=== PATIENT | male | born 1970 | race Caucasian/White ===

== ENCOUNTER 2017-03-31 05:09 | Emergency (ER) | payer BC ==
[2017-03-31] MEDS ORDERED: Ondansetron INJ* 2 MG/ML VIAL IV ONE (05:23)
[2017-03-31] MEDS ORDERED: NS 0.9% 1000 ML* 1,000 ML IV ONE (05:23)
[2017-03-31 06:17] LABS: Hematocrit 44 % (42-52); Hemoglobin 15.5 g/dl (14.0-18.0); Mean Corpuscular HGB Conc 35 g/dl (31-36); Mean Corpuscular Hemoglobin 34 pg (27-31); Mean Corpuscular Volume 96 fL (80-94); Mean Platelet Volume 11 um3 (7.4-10.4); Red Blood Count 4.58 10^6/ul (4.0-5.4); Red Cell Distribution Width 12 % (10.5-15); White Blood Count 8.4 10^3/ul (3.5-10.8)
[2017-03-31 06:19] LABS: Urine Bilirubin Negative (Negative); Urine Glucose Negative (Negative); Urine Nitrite Negative (Negative)
[2017-03-31 06:32] LABS: ALT 100 U/L (7-52); AST 35 U/L (13-39); Albumin 4.6 g/dL (3.2-5.2); Alkaline Phosphatase 67 U/L (34-104); Anion Gap 8 mmol/L (2-11); BUN/Creatinine Ratio 16.1 (8-20); Blood Urea Nitrogen 15 mg/dL (6-24); C Reactive Protein < 1.00 mg/L (< 5.00); CO2 Carbon Dioxide 27 mmol/L (22-32); Calcium 9.9 mg/dL (8.6-10.3); Chloride 103 mmol/L (101-111); EGFR African American 112.5 (>60); EGFR Non-African American 87.5 (>60); Globulin 3.1 g/dL (2-4); Glucose 99 mg/dL (70-100); Lipase 64 U/L (11.0-82.0); Potassium 3.5 mmol/L (3.5-5.0); Sodium 138 mmol/L (133-145); Total Protein 7.7 g/dL (6.4-8.9)
[2017-03-31] MEDS ORDERED: Iohexol 300* (CONTRAST) 10 ML SDV IV ONE ×2 (06:35→08:19)
--- NOTE | 2017-03-31 06:43 | ED ---
Paul Maier Rebecca, scribed for Liv Germain MD on 03/31/17 at 0523 . Abdominal Pain/Male - HPI Summary HPI Summary: Pt is a 46 y/o M who presents to ED c/o abdominal pain. Pain began 2-3 weeks ago and has been progressively worsening since onset. Pain is in the LLQ and RLQ with occasional radiation to the inguinal region and back. Sx characterized as constant pressure with intermittent sharp sensations. Currently, pain is moderate, ranked 4/10. Sx aggravated by palpation, alleviated by nothing. Denies CP, SOB, diarrhea and constipation. No FHx CA, CAD. - History of Current Complaint Chief Complaint: EDAbdPain Stated Complaint: ABD PAIN AND PRESSURE FOR APPROX 3 WKS Hx Obtained From: Patient Onset/Duration: Lasting Weeks - 2-3 weeks, Still Present Timing: Constant - pressure, Intermittent - sharp Severity Currently: Moderate Pain Intensity: 4 Pain Scale Used: 0-10 Numeric Location: Discrete At: RLQ, Discrete At: LLQ Radiates: Yes Radiates to: Back, Inguinal Character: Sharp, Other: - Pressure Aggravating Factor(s): Other: - Palpation Alleviating Factor(s): Nothing Associated Signs And Symptoms: Positive: Negative, Other - Denies SOB. Negative : Chest Pain, Constipation, Diarrhea - Allergies/Home Medications Allergies/Adverse Reactions: Allergies Allergy/AdvReac Type Severity Reaction Status Date / Time No Known Allergies Allergy Verified 03/31/17 05:10 PMH/Surg Hx/FS Hx/Imm Hx Endocrine/Hematology History: Denies: Hx Diabetes Cardiovascular History: Denies: Hx Hypercholesterolemia, Hx Hypertension Infectious Disease History: No Infectious Disease History: Denies: Traveled Outside the [place] in Last 30 Days - Family History Known Family History: Positive: Other - No FHx CA Negative: Cardiac Disease - Social History Occupation: Employed Full-time Lives: With Family Alcohol Use: None Substance Use Type: Reports: None Smoking Status (MU): Never Smoked Tobacco Review of Systems Negative: Chest Pain Negative: Shortness Of Breath Positive: Abdominal Pain - RLQ and LLQ with intermittent radiation to the back and inguinal regions, Other - Denies constipation. Negative: Diarrhea All Other Systems Reviewed And Are Negative: Yes Physical Exam - Summary Physical Exam Summary: General: Well appearing, no pain distress Skin: Warm, Skin Color Reflects Adequate Perfusion, Dry Eyes: EOMI, DIAN ENT: Pharynx normal, TMs normal Neck: Supple, nontender Respiratory: CTA, breath sounds present, no rhonchi, no wheezes, no rales Cardiovascular: RRR, no murmur, no rub, no gallop Abdomen: Soft, Non-distended, no guarding, no rebound, bilateral LQ pain Bowel: Slightly over active bowel sounds Musculoskeletal: MARINA, No edema Neuro: Sensory/motor intact, A&Ox3, CN intact 2-12 Psych: Affect/mood appropriate Triage Information Reviewed: Yes Vital Signs On Initial Exam: Initial Vitals Temp Pulse Resp BP Pulse Ox 97.6 F 72 18 153/67 100 03/31/17 05:13 03/31/17 05:13 03/31/17 05:13 03/31/17 05:13 03/31/17 05:13 Vital Signs Reviewed: Yes Diagnostics - Vital Signs Vital Signs Temp Pulse Resp BP Pulse Ox 03/31/17 05:13 97.6 F 72 18 153/67 100 - Laboratory Lab Results: Lab Results 03/31/17 03/31/17 Range/Units 05:50 05:50 WBC 8.4 (3.5-10.8) 10^3/ul RBC 4.58 (4.0-5.4) 10^6/ul Hgb 15.5 (14.0-18.0) g/dl Hct 44 (42-52) % MCV 96 H (80-94) fL MCH 34 H (27-31) pg MCHC 35 (31-36) g/dl RDW 12 (10.5-15) % Plt Count 142 L (150-450) 10^3/ul MPV 11 H (7.4-10.4) um3 Neut % (Auto) 41.2 (38-83) % Lymph % (Auto) 44.3 (25-47) % Hitchcock % (Auto) 11.7 H (1-9) % Eos % (Auto) 2.2 (0-6) % Baso % (Auto) 0.6 (0-2) % Absolute Neuts (auto) 3.5 (1.5-7.7) 10^3/ul Absolute Lymphs (auto) 3.7 (1.0-4.8) 10^3/ul Absolute Monos (auto) 1.0 H (0-0.8) 10^3/ul Absolute Eos (auto) 0.2 (0-0.6) 10^3/ul Absolute Basos (auto) 0 (0-0.2) 10^3/ul Absolute Nucleated RBC 0.01 10^3/ul Nucleated RBC % 0.2 Urine Color Yellow Urine Appearance Clear Urine pH 6.0 (5-9) Ur Specific [place] 1.011 (1.010-1.030) Urine Protein Negative (Negative) Urine Ketones Negative (Negative) Urine Blood Negative (Negative) Urine Nitrate Negative (Negative) Urine Bilirubin Negative (Negative) Urine Urobilinogen Negative (Negative) Ur Leukocyte Esterase Negative (Negative) Urine Glucose Negative (Negative) Result Diagrams: 03/31/17 05:50 Lab Statement: Any lab studies that have been ordered have been reviewed, and results considered in the medical decision making process. - EKG 0548 Cardiac Rate: NL - 68 bpm EKG Rhythm: Sinus Rhythm EKG Interpretation: No STEMI Abdominal Pain Fem Course/Dx - Course Course Of Treatment: 46 yo male with severalmonths of lower abdominal pain, pt is getting a ct and will be signed out to Dr. Hameed - Diagnoses Provider Diagnoses: Abdominal pain Discharge - Discharge Plan Condition: Stable Disposition: OTHER Discharge Disposition Comment: to be determined The documentation as recorded by the Paul king Rebecca accurately reflects the service I personally performed and the decisions made by me, Liv Germain MD.
--- NOTE | 2017-03-31 08:43 | RAD ---
Indication: Bilateral lower quadrant pain. Contrast: Administered 150.0 ml of OMNIPAQUE 300 mg/ml CT of the abdomen and pelvis was performed after oral and IV contrast administration. Coronal and sagittal reconstructed images were obtained. Lung bases demonstrate no pleural fluid, nodules or masses. Heart is of normal size without evidence of pericardial effusion. The liver is normal in size. It is diffusely decreased in density consistent with hepatic steatosis. The gallbladder is partially contracted. No calcified gallstones are noted. The spleen is normal in size. No adrenal lesions are noted. The kidneys demonstrate symmetric nephrograms without focal lesions or hydronephrosis. The pancreas demonstrates no mass or pancreatic ductal dilatation. The common duct is not dilated. The colon is filled with stool. CT of the pelvis demonstrates no retroperitoneal or pelvic lymphadenopathy. The appendix is visualized. The prostate and seminal vesicles are unremarkable. No hernias are noted. The bony structures are grossly unremarkable. IMPRESSION: NO ABNORMAL MASSES OR FLUID COLLECTIONS ARE IDENTIFIED. NO HERNIAS ARE NOTED. HEPATIC STEATOSIS IS PRESENT.
[2017-03-31 09:34] VITALS: BP 129/61
--- NOTE | 2017-03-31 09:51 | ED ---
Aureliano Maier Claudia, scribed for Davonte Hameed MD on 03/31/17 at 0904 . Progress - Progress Note Progress Note: Sign-out received at 700am from Liv Germain MD. Awaiting CT Abd/Pelvis. CTABD/PELVIS: NO ABNORMAL MASSES OR FLUID COLLECTIONS ARE IDENTIFIED. NO HERNIAS ARE NOTED. HEPATIC STEATOSIS IS PRESENT. Re-eval: 9:15am Lab and CT were discussed with the pt. Pt is agreeable with the plan to be d/c home. MDM: After lab-work and CT pt will be d/c home with follow-up with Dr. Mcrae this week. Course/Dx - Course Course Of Treatment: 46 yo male with severalmonths of lower abdominal pain, pt is getting a ct and will be signed out to Dr. Hameed - Diagnoses Provider Diagnoses: Abdominal pain The documentation as recorded by the Aureliano king Claudia accurately reflects the service I personally performed and the decisions made by me, Davonte Hameed MD.
== END 2017-03-31 09:39 ==
LOC: ED 05:09
DX: R10.9 Unspecified abdominal pain (principal)
CPT/HCPCS: 36415; 74177; 80053; 81003; 83605; 83690; 85025; 86140; 93005; 96374; 99282; J2405; Q9967